=== PATIENT | female | born 1995 | race Caucasian/White ===

== ENCOUNTER → 2023-10-12 | Outpatient (CLI) | payer OTHER ==
[2023-10-12 15:25] LABS: Free Thyroxine 0.69 ng/dL (0.70-1.60)
[2023-10-12 15:28] LABS: Thyroid Stimulating Hormone 3.12 uIU/mL (0.360-4.800); Triiodothyronine, Free 2.56 pg/mL (2.18-3.98)
[2023-10-13 17:01] LABS: THYROID PEROXIDASE (TPO) AB 1.5 IU/mL (0.0-9.0)
== END ==
LOC: LAB 13:13 → LAB SHORT 13:13
PROVIDERS: Family Medicine
DX: Z34.93 Encounter for supervision of normal pregnancy, unspecified, third trimester (principal)
CPT/HCPCS: 84439; 84443; 84481; 86376

== ENCOUNTER 2023-10-28 19:08 | Inpatient (IN) | payer OTHER ==
[~2023-10-28] VITALS: Ht 165.1 cm; Wt 119.5 kg
[~2023-10-28 19:08] MED LIST: Misoprostol 200 MCG Tab PO ONE
[2023-10-28] MEDS ORDERED: Lactated Ringer's 1,000 ML IV SCH ×3 (19:20)
[2023-10-28] MEDS ORDERED: Castor Oil 59.146 ML BTL TOP SCH (19:20)
[2023-10-28] MEDS ORDERED: FentaNYL 2mcg/ml-Bup 0.1% Epd 250 ML EPI PRN (19:20)
[2023-10-28] MEDS ORDERED: Bupivacaine 0.5% HCl 5 MG/ML 30MLVIAL XX SCH (19:20)
[2023-10-28] MEDS ORDERED: Oxytocin 10 Unit / ML Vial IM SCH (19:20)
[2023-10-28] MEDS ORDERED: Lidocaine HCl 1% 30 ML SDV XX SCH (19:20)
[2023-10-28] MEDS ORDERED: OXYTOCIN/RINGER'S LACTATE 500 ML IV SCH ×2 (19:20)
[2023-10-28] MEDS ORDERED: Lactated Ringer's 1,000 ML IV PRN ×3 (19:20→21:05)
[2023-10-28] MEDS ORDERED: ePHEDrine Sulfate 50 MG/ML 1ML Injection XX PRN (19:20)
[2023-10-28] MEDS ORDERED: Misoprostol 200 MCG Tab PR SCH (19:20)
[2023-10-28] MEDS ORDERED: Methylergonovine Maleate 0.2MG / ML 1ML Amp IM SCH (19:20)
[2023-10-28] MEDS ORDERED: Bupivacaine HCl 2.5 MG/ML 10ML P/F Injection XX SCH (19:20)
[2023-10-28] MEDS ORDERED: Misoprostol 25 MCG Tab VAG PRN (19:20)
[2023-10-28] MEDS ORDERED: Pantoprazole Sodium 40 MG Injection IV PRN (19:25)
[2023-10-28] MEDS ORDERED: Ondansetron HCl 2 MG / ML 2ML Vial IV PRN (19:25)
[2023-10-28 19:57] LABS: BASOPHILS ABSOLUTE AUTO 0.07 K/mm3 (0.00-0.23); BASOPHILS PERCENT AUTO 0 % (0-2); EOSINOPHILS PERCENT AUTO 1 % (0-6); Hematocrit 33.5 % (33.0-51.0); Hemoglobin 11.2 g/dL (11.5-16.0); IMMATURE GRAN ABSOLUTE AUTO 0.55 K/mm3 (0.00-0.10); IMMATURE GRAN PERCENT AUTO 3 % (0-1); LYMPHOCYTES ABSOLUTE AUTO 2.55 K/mm3 (0.84-5.20); LYMPHOCYTES PERCENT AUTO 13 % (21-46); MONOCYTES ABSOLUTE AUTO 1.82 K/mm3 (0.16-1.47); MONOCYTES PERCENT AUTO 9 % (4-13); Mean Corpuscular HGB 28.4 pg (26.0-34.0); Mean Corpuscular HGB Conc 33.4 g/dL (31.5-36.5); Mean Corpuscular Volume 85 fL (80-100); Mean Platelet Volume 9.5 fL (9.1-12.4); NEUTROPHILS ABSOLUTE AUTO 14.67 K/mm3 (1.96-9.15); NEUTROPHILS PERCENT AUTO 74 % (41-73); Platelet Count 349 K/mm3 (150-400); RDW Coefficient Variation 13.6 % (11.7-14.2); RDW Standard Deviation 41.8 fL (35.1-46.3); Red Blood Cell Count 3.95 M/mm3 (3.80-5.20); White Blood Cell Count 19.76 K/mm3 (4.00-11.30)
[2023-10-28] MEDS ORDERED: PRENATAL TABLE1 EAC2 PO (19:57)
[2023-10-28] MEDS ORDERED: LEVOTHYROXINE50 MC9 PO (19:58)
[2023-10-28 20:27] VITALS: BP 132/72
[2023-10-28] MEDS ORDERED: Calcium Carbonate 500 MG Tab Chew PO PRN (20:55)
[2023-10-28] MEDS ORDERED: Morphine Sulfate 10 MG/ML 1MLSYR IM PRN (23:40)
[2023-10-28] MEDS ORDERED: HyDROXyzine HCl 25 MG Tab PO PRN (23:40)
[2023-10-29] VITALS (8 sets, daily range): BP systolic 123–141; BP diastolic 56–86
[2023-10-29] MEDS ORDERED: Levothyroxine Sodium 0.05 MG Tab PO SCH (14:00)
[2023-10-29] MEDS ORDERED: FentaNYL Citrate 50 MCG/ML 2 ML Injection ONE (23:59)
[2023-10-30] VITALS (29 sets, daily range): BP systolic 111–188; BP diastolic 56–110
[2023-10-30] MEDS ORDERED: NS 1,000 ML IV SCH (08:30)
[2023-10-30] MEDS ORDERED: NS 1,000 ML IV ONE (08:33)
[2023-10-30] MEDS ORDERED: FentaNYL Citrate 50 MCG/ML 2 ML Injection ONE (08:36)
[2023-10-30] MEDS ORDERED: Prenatal Vit/FE Fumarate/FA 1 Tab PO SCH (09:00)
[2023-10-30] MEDS ORDERED: Acetaminophen 325 MG TABLET PO PRN (13:05)
[2023-10-30] MEDS ORDERED: Docusate Sodium 100 MG Cap PO PRN (13:05)
[2023-10-30] MEDS ORDERED: Witch Hazel/Glycerin PADS TOP PRN (13:05)
[2023-10-30] MEDS ORDERED: Benzocaine Topical Anesthetic Spray 60GM TOP PRN (13:05)
[2023-10-30] MEDS ORDERED: Lactated Ringer's 1,000 ML IV SCH (13:05)
[2023-10-30] MEDS ORDERED: Lanolin Cream TOP PRN (13:10)
[2023-10-30] MEDS ORDERED: OxyCODONE 5 mg/Acetamin 325 mg TABLET PO PRN (13:10)
[2023-10-30] MEDS ORDERED: Naproxen 500 MG Tab PO PRN (13:10)
[2023-10-30] MEDS ORDERED: Ketorolac Tromethamine 30mg Vial IV SCH (14:00)
[2023-10-31 04:17] VITALS: BP 119/56
[2023-10-31 05:31] LABS: Hematocrit 28.7 % (33.0-51.0); Hemoglobin 9.5 g/dL (11.5-16.0); Mean Corpuscular HGB 28.1 pg (26.0-34.0); Mean Corpuscular HGB Conc 33.1 g/dL (31.5-36.5); Mean Corpuscular Volume 85 fL (80-100); Mean Platelet Volume 9.4 fL (9.1-12.4); Platelet Count 287 K/mm3 (150-400); Red Blood Cell Count 3.38 M/mm3 (3.80-5.20)
[2023-10-31 07:37] VITALS: BP 123/68
[2023-10-31] MEDS ORDERED: Prenatal Vit/FE Fumarate/FA 1 Tab PO SCH (09:00)
--- NOTE | 2023-10-31 14:25 | NUR ---
PT IN BED DROWSY WITH , RN EDUCATED MOTHER ON THE NEED TO PLACE INFANT IN BASSINET WHEN SHE IS DROWSY OR SLEEPING FOR INFANTS SAFTEY. PT VERBALIZES UNDERSTANDING
[2023-10-31 17:32] VITALS: BP 121/66
== END 2023-10-31 18:40 | disposition home or self-care (01) | DRG 807 ==
LOC: OBS 19:08 → BC 19:13 → OBS 19:20 → BC 19:21
PROVIDERS: ADMIT Family Medicine
PROC: 10E0XZZ Delivery of Products of Conception, External Approach (ICD-10-PCS; principal; 2023-10-30)
PROC: 10907ZC Drainage of Amniotic Fluid, Therapeutic from Products of Conception, Via Natural or Artificial Opening (ICD-10-PCS; 2023-10-30)
PROC: 10H07YZ Insertion of Other Device into Products of Conception, Via Natural or Artificial Opening (ICD-10-PCS; 2023-10-30)
PROC: 3E0R3BZ Introduction of Anesthetic Agent into Spinal Canal, Percutaneous Approach (ICD-10-PCS; 2023-10-30)
PROC: 00HU33Z Insertion of Infusion Device into Spinal Canal, Percutaneous Approach (ICD-10-PCS; 2023-10-30)
DX: O48.0 Post-term pregnancy (principal); Z37.0 Single live birth; Z3A.41 41 weeks gestation of pregnancy; O69.81X0 Labor and delivery complicated by cord around neck, without compression, not applicable or unspecified; O70.0 First degree perineal laceration during delivery; O99.284 Endocrine, nutritional and metabolic diseases complicating childbirth; E03.9 Hypothyroidism, unspecified; O77.0 Labor and delivery complicated by meconium in amniotic fluid
CPT/HCPCS: 36415; 51702; 59070; 85025; 85027; 86850; 86900; 86901; 86923; A9270; C9113; J1885; J2270; J2590; J7030; J7120

== ENCOUNTER → 2024-01-27 | Outpatient (CLI) | payer OTHER ==
[~2024-01-27] MED LIST changes: +LEVOTHYROXINE50 MC9 PO; -Misoprostol 200 MCG Tab PO ONE; +PRENATAL TABLE1 EAC2 PO
[2024-01-27 19:58] LABS: Free Thyroxine 0.71 ng/dL (0.70-1.60); Thyroid Stimulating Hormone 4.03 uIU/mL (0.360-4.800); Triiodothyronine, Free 2.88 pg/mL (2.18-3.98)
[2024-01-28 18:45] LABS: THYROID PEROXIDASE (TPO) AB 2.9 IU/mL (0.0-9.0)
== END ==
LOC: LAB 10:51 → LAB SHORT 10:51
PROVIDERS: Family Medicine
DX: E03.9 Hypothyroidism, unspecified (principal)
CPT/HCPCS: 84439; 84443; 84481; 86376